=== PATIENT | male | born 1995 | race Hispanic/Latino ===

== ENCOUNTER 2019-06-11 23:34 | Emergency (ER) | payer BC, OTHER ==
[2019-06-12] MEDS ORDERED: ACETAMINOPHEN ELIXIR 160 MG/5ML UDCUP ONE (01:04)
[2019-06-12] MEDS ORDERED: IBUPROFEN 100 MG/5 ML SUSP UDCUP ONE (01:04)
== END 2019-06-12 01:17 | disposition home or self-care (01) ==
LOC: EDH 23:34
DX: S00.03XA Contusion of scalp, initial encounter (principal); Y08.89XA Assault by other specified means, initial encounter; Y93.89 Activity, other specified; Y92.89 Other specified places as the place of occurrence of the external cause; Y99.8 Other external cause status
CPT/HCPCS: 70450